=== PATIENT | female | born 2000 | race Caucasian/White ===

== ENCOUNTER 2021-09-25 22:31 | Emergency (ER) | payer OTHER, MEDICAID ==
[~2021-09-25] VITALS: Ht 167.6 cm; Wt 79.4 kg
[~2021-09-25 22:31] MED LIST: NOHOMEMEDICATIONS; SULFAMETHOXAZO480 ML PO; ZYRTEC10 M2 PO
[2021-09-25] MEDS ORDERED: CEPHALEXIN500 MG PO (23:42)
[2021-09-26] VITALS: BP 130/84
== END 2021-09-26 00:01 | disposition home or self-care (01) ==
LOC: M.ERS 22:31
DX: S61.211A Laceration without foreign body of left index finger without damage to nail, initial encounter (principal); W26.0XXA Contact with knife, initial encounter; Y93.89 Activity, other specified; Y92.89 Other specified places as the place of occurrence of the external cause; Y99.8 Other external cause status